=== PATIENT | female | born 1960 | race Hispanic/Latino ===

== ENCOUNTER 2021-11-26 09:04 | Outpatient (CLI) | payer OTHER | END 2021-11-26 09:05 | disposition home or self-care (01) | LOC: RAD 09:04 | PROVIDERS: ATTEND Internal Medicine Critical Care Medicine | DX: R06.00 Dyspnea, unspecified (principal); R91.8 Other nonspecific abnormal finding of lung field | CPT/HCPCS: 71046 ==

== ENCOUNTER 2022-04-30 06:57 | Outpatient (CLI) | payer OTHER | END 2022-04-30 06:58 | disposition home or self-care (01) | LOC: BICULT 06:57 | PROVIDERS: ATTEND Nurse Practitioner Family | DX: N64.4 Mastodynia (principal); R10.821 Right upper quadrant rebound abdominal tenderness; R63.2 Polyphagia | CPT/HCPCS: 76700 ==

== ENCOUNTER 2024-02-02 09:26 | Outpatient (CLI) | payer OTHER | END 2024-02-02 09:27 | disposition home or self-care (01) | LOC: RAD 09:26 | PROVIDERS: ATTEND Internal Medicine Critical Care Medicine | DX: R06.00 Dyspnea, unspecified (principal) | CPT/HCPCS: 71046 ==